=== PATIENT | male | born 1940 | race Caucasian/White ===

== ENCOUNTER → 2021-11-06 | Outpatient (CLI) | payer MEDICARE, BC | END | disposition home or self-care (01) | LOC: PLD 12:10 → LAB SHORT 12:10 | DX: C44.311 Basal cell carcinoma of skin of nose (principal) | CPT/HCPCS: 88305 ==

== ENCOUNTER 2025-05-31 17:31 | Emergency (ER) | payer MEDICARE, BC ==
[~2025-05-31] VITALS: Ht 170.2 cm; Wt 61.2 kg
[2025-05-31 18:24] LABS: BASOPHILS ABSOLUTE AUTO 0.07 K/mm3 (0.00-0.23); BASOPHILS PERCENT AUTO 1 % (0-2); EOSINOPHILS ABSOLUTE AUTO 0.10 K/mm3 (0.00-0.68); EOSINOPHILS PERCENT AUTO 1 % (0-6); Hematocrit 42.9 % (37.0-53.0); Hemoglobin 15.3 g/dL (13.5-17.5); IMMATURE GRAN ABSOLUTE AUTO 0.07 K/mm3 (0.00-0.10); IMMATURE GRAN PERCENT AUTO 1 % (0-1); LYMPHOCYTES ABSOLUTE AUTO 1.71 K/mm3 (0.84-5.20); LYMPHOCYTES PERCENT AUTO 12 % (21-46); MONOCYTES ABSOLUTE AUTO 0.93 K/mm3 (0.16-1.47); MONOCYTES PERCENT AUTO 7 % (4-13); Mean Corpuscular HGB Conc 35.7 g/dL (31.5-36.5); Mean Corpuscular Volume 91 fL (80-100); NEUTROPHILS ABSOLUTE AUTO 11.45 K/mm3 (1.96-9.15); NEUTROPHILS PERCENT AUTO 80 % (41-73); NRBC ABSOLUTE 0.00 K/mm3 (0.00-0.02); NRBC Auto 0.0 /100 WBC (0.0-0.2); Platelet Count 365 K/mm3 (150-400); RDW Coefficient Variation 13.3 % (11.7-14.2); RDW Standard Deviation 44.9 fL (35.1-46.3)
[2025-05-31 18:53] LABS: Alanine Aminotransfer (ALT/SGP 18.0 U/L (12-78); Albumin, Blood 4.4 g/dL (3.4-5.0); Albumin/Globulin Ratio 1.4 (0.8-1.8); Anion Gap 11.0 mmol/L (3-11); Aspartate Aminotrans (AST/SGOT 18.0 U/L (12-37); Bilirubin, Total 0.8 mg/dL (0.1-1.0); Blood Urea Nitrogen 10.0 mg/dL (8-24); CO2, Blood 26.0 mmol/L (21-32); Calcium, Blood 9.6 mg/dL (8.5-10.1); Chloride, Blood 97.0 mmol/L (98-108); Creatinine, Blood 0.88 mg/dL (0.60-1.20); Globulin, Blood 3.2 g/dL (2.2-4.0); Glucose, Blood 158.0 mg/dL (70-99); Potassium, Blood 3.3 mmol/L (3.5-5.5); Sodium, Blood 131.0 mmol/L (136-145); Total Protein, Blood 7.6 g/dL (6.4-8.2)
[2025-05-31] MEDS ORDERED: Lidocaine 2% Jelly Uro-Jet UR ONE (20:40)
[2025-05-31 21:31] LABS: Source, Urine Foley catheter
[2025-05-31 21:41] LABS: Bilirubin, Urine Neg (Neg); Color, Urine Yellow (P-Yellow); Glucose Qualitative, Urine Neg (Neg); Ketones, Urine 1+ (Neg); Leukocyte Esterase, Urine Neg (Neg); Protein, Urine 2+ (Neg); Specific Gravity, Urine 1.010 (1.003-1.022); Urobilinogen, Urine NORM (Normal)
[2025-05-31 21:56] LABS: Red Blood Cells, Urine 50-100 /hpf (0-2); White Blood Cells, Urine 0-2 /hpf (0-5)
[2025-05-31] MEDS ORDERED: TAMSULOSIN HCL0.4 M1 PO (23:42)
[2025-06-01] MEDS ORDERED: CefTRIAXone Sodium 1,000 MG in NS 50 ML IV ONE (02:50)
[2025-06-01] MEDS ORDERED: NS 1,000 ML IV SCH (02:50)
[2025-06-01 05:20] VITALS: BP 178/95
== END 2025-06-01 05:30 | disposition short-term general hospital (02) ==
LOC: ER 17:31
PROVIDERS: Student in an Organized Health Care Education/Training Program
DX: G95.20 Unspecified cord compression (principal)
CPT/HCPCS: 36415; 51702; 51798; 71046; 71260; 74177; 80053; 81001; 83605; 83690; 84484; 85025; 87040; 93005; 93010; 96365-59; 99285-25; J0696; J7030; Q9967

== ENCOUNTER → 2025-06-12 | Outpatient (CLI) | payer MEDICARE, BC ==
[~2025-06-12] MED LIST: AMLO5 PO; METOPROLOL TART25 MG PO; TAMS.4ER PO; TAMSULOSIN HCL0.4 M1 PO
[2025-06-12 12:10] LABS: BASOPHILS ABSOLUTE AUTO 0.03 K/mm3 (0.00-0.23); BASOPHILS PERCENT AUTO 0 % (0-2); EOSINOPHILS ABSOLUTE AUTO 0.01 K/mm3 (0.00-0.68); EOSINOPHILS PERCENT AUTO 0 % (0-6); Hematocrit 32.8 % (37.0-53.0); Hemoglobin 12.2 g/dL (13.5-17.5); IMMATURE GRAN ABSOLUTE AUTO 0.10 K/mm3 (0.00-0.10); IMMATURE GRAN PERCENT AUTO 1 % (0-1); LYMPHOCYTES ABSOLUTE AUTO 0.61 K/mm3 (0.84-5.20); LYMPHOCYTES PERCENT AUTO 6 % (21-46); MONOCYTES ABSOLUTE AUTO 0.72 K/mm3 (0.16-1.47); MONOCYTES PERCENT AUTO 7 % (4-13); Mean Corpuscular HGB Conc 37.2 g/dL (31.5-36.5); Mean Corpuscular Volume 87 fL (80-100); NEUTROPHILS ABSOLUTE AUTO 8.79 K/mm3 (1.96-9.15); NEUTROPHILS PERCENT AUTO 86 % (41-73); NRBC ABSOLUTE 0.00 K/mm3 (0.00-0.02); NRBC Auto 0.0 /100 WBC (0.0-0.2); Platelet Count 246 K/mm3 (150-400); RDW Coefficient Variation 13.8 % (11.7-14.2); RDW Standard Deviation 44.0 fL (35.1-46.3)
[2025-06-12 12:19] LABS: Alanine Aminotransfer (ALT/SGP 108.0 U/L (12-78); Albumin, Blood 3.1 g/dL (3.4-5.0); Albumin/Globulin Ratio 1.0 (0.8-1.8); Anion Gap 14.0 mmol/L (6-16); Aspartate Aminotrans (AST/SGOT 69.0 U/L (12-37); Bilirubin, Total 0.8 mg/dL (0.1-1.0); Blood Urea Nitrogen 13.0 mg/dL (8-24); CO2, Blood 27.0 mmol/L (21-32); Calcium, Blood 8.9 mg/dL (8.5-10.1); Chloride, Blood 91.0 mmol/L (98-108); Creatinine, Blood 1.0 mg/dL (0.60-1.20); Globulin, Blood 3.0 g/dL (2.2-4.0); Glucose, Blood 98.0 mg/dL (70-99); Potassium, Blood 3.3 mmol/L (3.5-5.5); Sodium, Blood 129.0 mmol/L (136-145); Total Protein, Blood 6.1 g/dL (6.4-8.2)
== END ==
LOC: LAB SHORT 12:05 → LAB 12:05
PROVIDERS: Family Medicine
DX: R50.9 Fever, unspecified (principal)
CPT/HCPCS: 80053; 85025

== ENCOUNTER 2025-06-13 11:19 | Inpatient (IN) | payer MEDICARE, BC ==
[~2025-06-13] VITALS: Ht 170.2 cm; Wt 58.2 kg
[~2025-06-13 11:19] MED LIST changes: -AMLO5 PO; -METOPROLOL TART25 MG PO; -TAMS.4ER PO
[2025-06-13] MEDS ORDERED: NS 1,000 ML IV SCH ×2 (11:50→17:40)
[2025-06-13 11:57] LABS: Source, Urine Clean Catch
[2025-06-13 12:05] LABS: BASOPHILS ABSOLUTE AUTO 0.04 K/mm3 (0.00-0.23); BASOPHILS PERCENT AUTO 0 % (0-2); EOSINOPHILS ABSOLUTE AUTO 0.00 K/mm3 (0.00-0.68); EOSINOPHILS PERCENT AUTO 0 % (0-6); Hematocrit 31.2 % (37.0-53.0); Hemoglobin 11.2 g/dL (13.5-17.5); IMMATURE GRAN ABSOLUTE AUTO 0.14 K/mm3 (0.00-0.10); IMMATURE GRAN PERCENT AUTO 1 % (0-1); LYMPHOCYTES ABSOLUTE AUTO 0.65 K/mm3 (0.84-5.20); LYMPHOCYTES PERCENT AUTO 6 % (21-46); MONOCYTES ABSOLUTE AUTO 0.55 K/mm3 (0.16-1.47); MONOCYTES PERCENT AUTO 5 % (4-13); Mean Corpuscular HGB Conc 35.9 g/dL (31.5-36.5); Mean Corpuscular Volume 90 fL (80-100); NEUTROPHILS ABSOLUTE AUTO 10.45 K/mm3 (1.96-9.15); NEUTROPHILS PERCENT AUTO 88 % (41-73); NRBC ABSOLUTE 0.00 K/mm3 (0.00-0.02); NRBC Auto 0.0 /100 WBC (0.0-0.2); Platelet Count 272 K/mm3 (150-400); RDW Coefficient Variation 14.1 % (11.7-14.2); RDW Standard Deviation 46.2 fL (35.1-46.3)
[2025-06-13 12:18] LABS: Bilirubin, Urine Neg (Neg); Color, Urine Yellow (P-Yellow); Glucose Qualitative, Urine Neg (Neg); Ketones, Urine 1+ (Neg); Leukocyte Esterase, Urine Neg (Neg); Protein, Urine 3+ (Neg); Specific Gravity, Urine 1.010 (1.003-1.022); Urobilinogen, Urine 1+ (Normal)
[2025-06-13 12:43] LABS: Alanine Aminotransfer (ALT/SGP 87.0 U/L (12-78); Albumin, Blood 2.9 g/dL (3.4-5.0); Albumin/Globulin Ratio 1.1 (0.8-1.8); Anion Gap 11.0 mmol/L (3-11); Aspartate Aminotrans (AST/SGOT 61.0 U/L (12-37); Bilirubin, Total 0.6 mg/dL (0.1-1.0); Blood Urea Nitrogen 14.0 mg/dL (8-24); CO2, Blood 23.0 mmol/L (21-32); Calcium, Blood 8.4 mg/dL (8.5-10.1); Chloride, Blood 95.0 mmol/L (98-108); Creatinine, Blood 0.91 mg/dL (0.60-1.20); Globulin, Blood 2.7 g/dL (2.2-4.0); Glucose, Blood 90.0 mg/dL (70-99); Potassium, Blood 4.0 mmol/L (3.5-5.5); Sodium, Blood 125.0 mmol/L (136-145); Total Protein, Blood 5.6 g/dL (6.4-8.2)
[2025-06-13 13:23] LABS: White Blood Cells, Urine 0-2 /hpf (0-5)
[2025-06-13] MEDS ORDERED: METOPROLOL TART25 MG PO (15:29)
[2025-06-13] MEDS ORDERED: Albuterol 2.5 MG/3 ML VIAL INH PRN (17:40)
[2025-06-13] MEDS ORDERED: Ondansetron HCl 2 MG / ML 2ML Vial IV PRN (17:40)
[2025-06-13] MEDS ORDERED: FLU VACC TS2025(65UP)/MF59C/PF 45 MCG/0.5 ML SYRINGE IM SCH (17:40)
[2025-06-13 20:07] VITALS: BP 155/83
[2025-06-14] VITALS (12 sets, daily range): BP systolic 99–141; BP diastolic 48–88
[2025-06-14] MEDS ORDERED: Metoprolol Tartrate 1 MG/ML 5 ML VIAL IV ONE (04:00)
[2025-06-14 05:09] LABS: Hematocrit 32.3 % (37.0-53.0); Hemoglobin 11.5 g/dL (13.5-17.5); Mean Corpuscular HGB Conc 35.6 g/dL (31.5-36.5); Mean Corpuscular Volume 91 fL (80-100); NRBC ABSOLUTE 0.00 K/mm3 (0.00-0.02); NRBC Auto 0.0 /100 WBC (0.0-0.2); Platelet Count 316 K/mm3 (150-400); RDW Coefficient Variation 14.3 % (11.7-14.2); RDW Standard Deviation 47.2 fL (35.1-46.3)
[2025-06-14 05:13] LABS: Anion Gap 12.0 mmol/L (3-11); Blood Urea Nitrogen 13.0 mg/dL (8-24); CO2, Blood 23.0 mmol/L (21-32); Calcium, Blood 8.3 mg/dL (8.5-10.1); Chloride, Blood 97.0 mmol/L (98-108); Creatinine, Blood 0.85 mg/dL (0.60-1.20); Glucose, Blood 98.0 mg/dL (70-99); Magnesium, Blood 2.0 mg/dL (1.6-2.4); Potassium, Blood 3.5 mmol/L (3.5-5.5); Sodium, Blood 128.0 mmol/L (136-145)
[2025-06-14] MEDS ORDERED: Diltiazem HCl 5 MG / ML 5ML Vial IV ONE (05:15)
--- NOTE | 2025-06-14 06:11 | NUR ---
RAPID CALLED DUE TO PT NOT RESPONDING TO MEDICATION HR REMAIN 160-170 REPORT GIVEN TO PCU NURSE.
--- NOTE | 2025-06-14 06:53 | NUR ---
ASSUMPTION OF CARE PT WAS RAPID RESPONSE ON MEDICAL FLOOR AND WAS BROUGHT DOWN TO PCU 13 AT 06:15. PT IS A&O X4, ABLE TO MAKE NEEDS KNOWN, FORGETFUL AT TIMES. BP STABLE, TELE SHOWS HR 150'S-160'S. HE DENIES SOB OR CP AT THIS TIME. DILTIAZEM DRIP INITIATED WITH 10MG BOLUS AND 10MG/HR CONTINUOUS. HR NOW 110'S-120'S. PT HAS RED RASH OVER ENTIRE BODY, HE STATES THAT IT IS ITCHY BUT NOT PAINFUL. HE THINKS THIS HAS BEEN ONGOING FOR APPROXIMATELY A WEEK. HE STATES THAT IT STARTED AFTER HE HAD SURGERY ON A SPINAL ABSCESS AT [facility] RECENTLY. THERE IS AN APPROXIMATELY 6" LONG INCISION ALONG HIS SPINE. PT ON RA WITH O2 SATS ABOVE 95%. CALL LIGHT IN REACH, BREATHING IS EVEN AND UNLABORED, CARE CONTINUES.
--- NOTE | 2025-06-14 07:37 | NUR ---
ASSUMPTION OF CARE REPORT FROM PIETRO DIEHL RN TO ASSUME CARE OF PT. PT RESTING IN BED WITH NO COMPLAINTS AT THIS TIME. ON DILT GTT AT 15/ML/HR. HR REMAINS IN THE 115-140'S. BLOOD PRESSURE STABLE. DENIES ANY COMPLAINTS OR NEEDS AT THIS TIME. CALL LIGHT IN REACH.
[2025-06-14] MEDS ORDERED: NS 1,000 ML IV SCH (07:55)
[2025-06-14] MEDS ORDERED: Enoxaparin 40 MG/0.4 ML SYR SC SCH (09:00)
[2025-06-14] MEDS ORDERED: AMLO5 PO (13:47)
[2025-06-14] MEDS ORDERED: TAMS.4ER PO (13:48)
--- NOTE | 2025-06-14 18:13 | NUR ---
SHIFT SUMMARY: PT A&OX4 FOLLOWS COMMANDS AND MAKES NEEDS KNOWN TO STAFF. DENIES ANY C/O CP, PRESSURE, TIGHTNESS OR SOB. ON CARDIZED GTT AT 15MG/HR MOST OF THE SHIFT AND CONVERTED TO SINUS AT 1551. CARDIZEM GTT ON STANDBY. VSS. DR DAVID (DERMATOLOGIS) CAME AND SAW PT TODAY AND TOOK A BIOPSY OF RASH. RASH DOES NOT APPEAR TO HAVE GOTTEN WORSE DURING THIS SHIFT. PROVIDER WOULD LIKE STAFF TO WATCH FOR WORSENING 3RD SPACING, FEVER, WORSENING RASH, OR ANY NEW SIGNS OF INFECTION. PT WAS TURNED Q2 HOURS THIS SHIFT. PT DID NOT HAVE MUCH PO INTAKE BUT WAS AGREEABLE TO A ENSURE FOR DINNER. NO OTHER SIGNIFICANT EVENTS HAPPENED DURING THIS SHIFT. WILL CONTINUE TO CARE FOR PT TILL END OF SHIFT.
--- NOTE | 2025-06-14 19:32 | NUR ---
ASSUMPTION OF CARE ASSUMED PT'S CARE AT 1900,BEDSIDE REPORT COMPLETED.PT RESTING IN BED,OPENS EYES TO VERBAL COMMAND.A&OX4.PLAN OF CARE REVIEWED.PT REQUESTING THE ORDERED OINTMENT,OINTMENT NOT AVAILABLE.PHARMACY TO SEND THE OINTMENT.PT DENIES FURTHER NEEDS.CALL LIGHT AND PT'S ITEMS WITHIN REACH.MONITORING ONGOING PER CAREPLAN.
[2025-06-15 00:19] VITALS: BP 16/75
[2025-06-15 04:07] VITALS: BP 155/82
[2025-06-15 04:33] LABS: BASOPHILS ABSOLUTE AUTO 0.02 K/mm3 (0.00-0.23); BASOPHILS PERCENT AUTO 0 % (0-2); EOSINOPHILS ABSOLUTE AUTO 0.00 K/mm3 (0.00-0.68); EOSINOPHILS PERCENT AUTO 0 % (0-6); Hematocrit 29.5 % (37.0-53.0); Hemoglobin 10.7 g/dL (13.5-17.5); IMMATURE GRAN ABSOLUTE AUTO 0.16 K/mm3 (0.00-0.10); IMMATURE GRAN PERCENT AUTO 1 % (0-1); LYMPHOCYTES ABSOLUTE AUTO 0.62 K/mm3 (0.84-5.20); LYMPHOCYTES PERCENT AUTO 6 % (21-46); MONOCYTES ABSOLUTE AUTO 0.62 K/mm3 (0.16-1.47); MONOCYTES PERCENT AUTO 6 % (4-13); Mean Corpuscular HGB Conc 36.3 g/dL (31.5-36.5); Mean Corpuscular Volume 91 fL (80-100); NEUTROPHILS ABSOLUTE AUTO 9.84 K/mm3 (1.96-9.15); NEUTROPHILS PERCENT AUTO 87 % (41-73); NRBC ABSOLUTE 0.00 K/mm3 (0.00-0.02); NRBC Auto 0.0 /100 WBC (0.0-0.2); Platelet Count 375 K/mm3 (150-400); RDW Coefficient Variation 14.4 % (11.7-14.2); RDW Standard Deviation 48.0 fL (35.1-46.3)
--- NOTE | 2025-06-15 05:51 | NUR ---
PT MONITORED DURING THE SHIFT.PT SLEPT ON AND OFF THROUGHOUT THE SHIFT.PT REPORTED THAT ITCHING OF HIS SKIN IMPROVED AFTER THE APPLICATION OF TRIAMCINOLONE CREAM.PT AFEBRILE.WAFFLE PAD PLACED UNDER PT'S BOTTOM PER PT'S REQUEST.PT REPORTED THAT HIS "TAIL BONE" WAS HURTING AFTER LAYING IN BED FOR A LONG TIME.VSS.PT LYING IN BED WATCHING TV AT THIS TIME.PT DENIES PAIN,DENIES SOB,DENIES NEEDS.CALL LIGHT AND PT'S ITEMS WITHIN REACH.MONITORING ONGOING PER CAREPLAN.
[2025-06-15 06:14] LABS: Magnesium, Blood 2.3 mg/dL (1.6-2.4); Thyroid Stimulating Hormone 0.701 uIU/mL (0.360-4.800)
[2025-06-15 06:28] LABS: Alanine Aminotransfer (ALT/SGP 64.0 U/L (12-78); Albumin, Blood 2.8 g/dL (3.4-5.0); Albumin/Globulin Ratio 1.1 (0.8-1.8); Anion Gap 11.0 mmol/L (3-11); Aspartate Aminotrans (AST/SGOT 35.0 U/L (12-37); Bilirubin, Total 0.5 mg/dL (0.1-1.0); Blood Urea Nitrogen 20.0 mg/dL (8-24); C-Reactive Protein, High Sens. 95.3 mg/L (0.000-3.000); CO2, Blood 23.0 mmol/L (21-32); Calcium, Blood 8.4 mg/dL (8.5-10.1); Chloride, Blood 102.0 mmol/L (98-108); Creatinine, Blood 0.72 mg/dL (0.60-1.20); Globulin, Blood 2.5 g/dL (2.2-4.0); Glucose, Blood 126.0 mg/dL (70-99); Potassium, Blood 3.8 mmol/L (3.5-5.5); Sodium, Blood 132.0 mmol/L (136-145); Total Protein, Blood 5.3 g/dL (6.4-8.2)
[2025-06-15 07:50] VITALS: BP 160/88
[2025-06-15 09:25] VITALS: BP 160/88
--- NOTE | 2025-06-15 09:59 | NUR ---
SPOKE with , updated on transfer orders for [facility].
--- NOTE | 2025-06-15 11:02 | NUR ---
and daughter at the bedside. Pt was taken by stretcher by EMS to [facility] transfer.
[2025-06-17 08:19] LABS: HIV 1,2 COMBO ANTIGEN/ANTIBODY Negative (Negative)
[2025-06-17 08:37] LABS: HEPATITIS A ANTIBODY, IGM Negative (Negative); HEPATITIS C AB CIA INTERP Negative (Negative); HEPATITIS C ANTIBODY CIA INDEX <0.02 IV
[2025-06-17 12:03] LABS: CYCLIC CITRULLINATED PEP,IGG/A 2 Units (0-19)
[2025-06-17 20:27] LABS: ANTI-NUCLEAR AB ANA,IGG ELISA Detected (None Detected)
[2025-06-17 20:53] LABS: DOUBLE-STRANDED DNA IGG ELISA 8 IU (0-24)
[2025-06-19 09:08] LABS: ANTINUCLEAR AB (ANA),HEP-2,IGG Detected (<1:80)
[2025-06-19 20:57] LABS: SMITH/RNP (ENA) AB, IGG 2 Units (0-19)
== END 2025-06-15 10:45 | disposition short-term general hospital (02) | DRG 607 ==
LOC: ER 11:19 → PCU 11:20 → MEDS 11:20 → PCU 06-14 06:07
PROVIDERS: Emergency Medicine; Internal Medicine; Nurse Practitioner Acute Care; ADMIT Internal Medicine
PROC: 0HB7XZX Excision of Abdomen Skin, External Approach, Diagnostic (ICD-10-PCS; principal; 2025-06-13)
PROC: 3E02340 Introduction of Influenza Vaccine into Muscle, Percutaneous Approach (ICD-10-PCS; 2025-06-13)
DX: L27.0 Generalized skin eruption due to drugs and medicaments taken internally (principal); E87.1 Hypo-osmolality and hyponatremia; E87.20 Acidosis, unspecified; I48.91 Unspecified atrial fibrillation; T46.1X5A Adverse effect of calcium-channel blockers, initial encounter; D72.829 Elevated white blood cell count, unspecified; E87.8 Other disorders of electrolyte and fluid balance, not elsewhere classified; E86.0 Dehydration; F12.20 Cannabis dependence, uncomplicated; I10 Essential (primary) hypertension; T36.1X5A Adverse effect of cephalosporins and other beta-lactam antibiotics, initial encounter; T36.8X5A Adverse effect of other systemic antibiotics, initial encounter; N40.1 Benign prostatic hyperplasia with lower urinary tract symptoms; J44.9 Chronic obstructive pulmonary disease, unspecified; B95.5 Unspecified streptococcus as the cause of diseases classified elsewhere; B96.89 Other specified bacterial agents as the cause of diseases classified elsewhere; R33.8 Other retention of urine; Z23 Encounter for immunization; Z86.61 Personal history of infections of the central nervous system; Z88.5 Allergy status to narcotic agent; Z79.899 Other long term (current) drug therapy; Z87.440 Personal history of urinary (tract) infections
CPT/HCPCS: 36415; 80048; 80053; 80074; 81001; 83605; 83735; 83880; 84100; 84443; 85025; 85027; 85651; 86038; 86039; 86141; 86200; 86225; 87040; 87077; 87389; 92610; 93005; 93010; 93306; 96365; 96366; 96368; 96372; 96375; 96376; 99284; A9270; G0378; J1650; J2919; J3480; J7030; J7050

== ENCOUNTER → 2025-06-13 | Outpatient (CLI) | payer MEDICARE, BC | LOC: LAB 10:35 | DX: R50.9 Fever, unspecified (principal) ==

== ENCOUNTER → 2025-06-29 | Outpatient (CLI) | payer MEDICARE, BC ==
[~2025-06-29] MED LIST changes: +AMLO5 PO; +METOPROLOL TART25 MG PO; +TAMS.4ER PO
== END ==
LOC: LAB SHORT 11:42 → LAB 11:42
DX: L08.0 Pyoderma (principal)
CPT/HCPCS: 87070; 87077; 87106; 87186; 87205

== ENCOUNTER 2025-07-10 07:27 | Day surgery (SDC) | payer MEDICARE, BC | END 2025-07-10 23:19 | disposition home or self-care (01) | LOC: WOUND 07:27 | DX: L02.212 Cutaneous abscess of back [any part, except buttock and flank] (principal); N40.0 Benign prostatic hyperplasia without lower urinary tract symptoms; J44.9 Chronic obstructive pulmonary disease, unspecified; H26.9 Unspecified cataract; Z87.891 Personal history of nicotine dependence | CPT/HCPCS: G0463 ==

== ENCOUNTER 2025-07-24 00:14 | Day surgery (SDC) | payer MEDICARE, BC | END 2025-07-24 23:00 | disposition home or self-care (01) | LOC: WOUND 00:14 | DX: Z87.828 Personal history of other (healed) physical injury and trauma (principal); J44.9 Chronic obstructive pulmonary disease, unspecified | CPT/HCPCS: G0463 ==